=== PATIENT | female | born 1965 | race Caucasian/White ===

== ENCOUNTER 2018-09-05 05:20 | Inpatient (IN) | payer BC ==
[2018-09-05 06:26] LABS: Basophils % (A) 0 %; Eosinophils # (A) 0.1 k/uL (0-0.7); Eosinophils % (A) 1 %; HCT 40.1 % (34.0-46.0); HGB 12.8 gm/dL (11.4-16.0); Lymphocytes # (A) 0.8 k/uL (1.0-4.8); Lymphocytes % (A) 6 %; MCH 26.1 pg (25.0-35.0); MCHC 31.9 g/dL (31.0-37.0); MCV 81.7 fL (80.0-100.0); Mean Platelet Volume 6.8; Monocytes # (A) 0.6 k/uL (0-1.0); Monocytes % (A) 5 %; Neutrophils # (A) 10.7 k/uL (1.3-7.7); Neutrophils % (A) 87 %; Platelet Count 219 k/uL (150-450); RBC 4.92 m/uL (3.80-5.40); RDW 15.4 % (11.5-15.5); WBC 12.3 k/uL (3.8-10.6)
[2018-09-05 06:36] LABS: ALT 30 U/L (9-52); AST 23 U/L (14-36); Albumin 3.7 g/dL (3.5-5.0); Alkaline Phosphatase 96 U/L (38-126); Amylase 35 U/L (30-110); Anion Gap 10 mmol/L; Blood Urea Nitrogen 11 mg/dL (7-17); Calcium 7.3 mg/dL (8.4-10.2); Carbon Dioxide 26 mmol/L (22-30); Chloride 99 mmol/L (98-107); Glucose 145 mg/dL (74-99); Lipase 18 U/L (23-300); Potassium 3.8 mmol/L (3.5-5.1); Sodium 135 mmol/L (137-145); Total Bilirubin 1.3 mg/dL (0.2-1.3); Total Protein 6.8 g/dL (6.3-8.2)
[2018-09-05 06:55] LABS: Appearance,Urine Clear (Clear); Bacteria,Urine Rare /hpf; Bilirubin,Urine Negative (Negative); Blood,Urine Small (Negative); Color,Urine Yellow; Glucose,Urine (UA) Negative (Negative); Ketones,Urine 1+ (Negative); Leukocyte Esterase,Urine Negative (Negative); Mucus,Urine Few /hpf; Nitrite,Urine Negative (Negative); PH, Urine 5.5 (5.0-8.0); Protein,Urine Trace (Negative); RBC,Urine 2 /hpf (0-5); Specific Gravity,Urine 1.008 (1.001-1.035); Squamous Epithelial Cell,Urine 2 /hpf (0-4); Urobilinogen,Urine <2.0 mg/dL (<2.0); WBC,Urine 1 /hpf (0-5)
[2018-09-05] MEDS ORDERED: SODIUM CHLORIDE 0.9% 1,000 ML IV STA (07:09)
[2018-09-05] MEDS ORDERED: ONDANSETRON 4 MG/2 ML VIAL IVP STA (07:09)
--- NOTE | 2018-09-05 07:37 | ED ---
General Adult HPI - General Chief complaint: Nausea/Vomiting/Diarrhea Stated complaint: Diarrhea,Fever Time Seen by Provider: 09/05/18 07:08 Source: patient, RN notes reviewed Mode of arrival: ambulatory Limitations: no limitations - History of Present Illness Initial comments: Patient 52-year-old female presented to the emergency room today with a chief complaint of increased abdominal pain and fever. Patient does admit that she's had some pain in the lower abdomen. She states this is similar to pain that she had a few weeks ago. She states her doctor put her on Cipro and Flagyl. She states she had a CAT scan done in [place]. She states she recently came here to [place] for a . She states last night pain increases nor that she was running a fever. She doesn't that she's had diarrhea and symptoms of nausea. Patient denies any other complaints or symptoms. Patient denies any recent fever, chills, shortness of breath, chest pain, back pain, numbness or tingling, dysuria or hematuria, constipation, headaches or visual changes, or any other complaints. - Related Data Home Medications Medication Instructions Recorded Confirmed Levothyroxine Sodium [Synthroid] 100 mcg PO DAILY 09/05/18 09/05/18 Allergies Allergy/AdvReac Type Severity Reaction Status Date / Time cephalexin Allergy Rash/Hives Verified 09/05/18 07:50 Iodinated Contrast- Oral and Allergy Dyspnea Verified 09/05/18 07:50 IV Dye Review of Systems ROS Statement: Those systems with pertinent positive or pertinent negative responses have been documented in the HPI. ROS Other: All systems not noted in ROS Statement are negative. Past Medical History Past Medical History: Thyroid Disorder Additional Past Medical History / Comment(s): neck and back pain. thyroid ca. History of Any Multi-Drug Resistant Organisms: None Reported Past Surgical History: Section Additional Past Surgical History / Comment(s): thyroidectomy. ovarian cysts. Past Psychological History: Anxiety Smoking Status: Former smoker Past Alcohol Use History: None Reported Past Drug Use History: None Reported General Exam - General Exam Comments Initial Comments: General: The patient is awake and alert, in no distress, and does not appear acutely ill. Eye: There is normal conjunctiva bilaterally. No signs of icterus. Ears, nose, mouth and throat: There are moist mucous membranes and no oral lesions. Neck: The neck is supple, there is no tenderness or JVD. Cardiovascular: There is a regular rate and rhythm. No murmur, rub or gallop is appreciated. Respiratory: Lungs are clear to auscultation, respirations are non-labored, breath sounds are equal. No wheezes, stridor, rales, or rhonchi. Gastrointestinal: Having soft on palpation. Patient does have tenderness left lower quadrant. No rebound, guarding or CVA tenderness. Musculoskeletal: Normal ROM, no tenderness. Pulses equal bilaterally 2+. Neurological: A&O x 3. CN II-XII intact, There are no obvious motor or sensory deficits. Coordination appears grossly intact. Speech is normal. Skin: Skin is warm and dry and no rashes or lesions are noted. Psychiatric: Cooperative, appropriate mood & affect, normal judgment. Limitations: no limitations Course Vital Signs 09/05/18 05:26 Temperature 99.4 F Pulse Rate 109 H Respiratory 16 Rate Blood Pressure 109/75 O2 Sat by Pulse 99 Oximetry Medical Decision Making - Medical Decision Making Patient reexamined at this time shows no signs of distress is resting comfortable. Does admit that she's had increased diarrhea and having difficult time controlling at home. Patient labs been reviewed does show 12,000 white count. Patient's seated test was positive. CAT scan and pelvis reviewed and does show evidence for colitis. Results were discussed with the patient. Patient will be admitted around vancomycin here in the emergency room. - Lab Data Result diagrams: 09/05/18 05:57 09/05/18 05:57 Lab Results 09/05/18 09/05/18 09/05/18 Range/Units 05:57 05:57 06:40 WBC 12.3 H (3.8-10.6) k/uL RBC 4.92 (3.80-5.40) m/uL Hgb 12.8 (11.4-16.0) gm/dL Hct 40.1 (34.0-46.0) % MCV 81.7 (80.0-100.0) fL MCH 26.1 (25.0-35.0) pg MCHC 31.9 (31.0-37.0) g/dL RDW 15.4 (11.5-15.5) % Plt Count 219 (150-450) k/uL Neutrophils % 87 % Lymphocytes % 6 % Monocytes % 5 % Eosinophils % 1 % Basophils % 0 % Neutrophils # 10.7 H (1.3-7.7) k/uL Lymphocytes # 0.8 L (1.0-4.8) k/uL Monocytes # 0.6 (0-1.0) k/uL Eosinophils # 0.1 (0-0.7) k/uL Basophils # 0.0 (0-0.2) k/uL Sodium 135 L (137-145) mmol/L Potassium 3.8 (3.5-5.1) mmol/L Chloride 99 (98-107) mmol/L Carbon Dioxide 26 (22-30) mmol/L Anion Gap 10 mmol/L BUN 11 (7-17) mg/dL Creatinine 0.68 (0.52-1.04) mg/dL Est GFR (CKD-EPI)AfAm >90 (>60 ml/min/1.73 sqM) Est GFR (CKD-EPI)NonAf >90 (>60 ml/min/1.73 sqM) Glucose 145 H (74-99) mg/dL Calcium 7.3 L (8.4-10.2) mg/dL Total Bilirubin 1.3 (0.2-1.3) mg/dL AST 23 (14-36) U/L ALT 30 (9-52) U/L Alkaline Phosphatase 96 (38-126) U/L Total Protein 6.8 (6.3-8.2) g/dL Albumin 3.7 (3.5-5.0) g/dL Amylase 35 (30-110) U/L Lipase 18 L (23-300) U/L Urine Color Yellow Urine Appearance Clear (Clear) Urine pH 5.5 (5.0-8.0) Ur Specific [place] 1.008 (1.001-1.035) Urine Protein Trace H (Negative) Urine Glucose (UA) Negative (Negative) Urine Ketones 1+ H (Negative) Urine Blood Small H (Negative) Urine Nitrite Negative (Negative) Urine Bilirubin Negative (Negative) Urine Urobilinogen <2.0 (<2.0) mg/dL Ur Leukocyte Esterase Negative (Negative) Urine RBC 2 (0-5) /hpf Urine WBC 1 (0-5) /hpf Ur Squamous Epith Cells 2 (0-4) /hpf Urine Bacteria Rare H (None) /hpf Urine Mucus Few H (None) /hpf C. difficile (EIA) Intrp (Negative) 09/05/18 Range/Units 07:50 WBC (3.8-10.6) k/uL RBC (3.80-5.40) m/uL Hgb (11.4-16.0) gm/dL Hct (34.0-46.0) % MCV (80.0-100.0) fL MCH (25.0-35.0) pg MCHC (31.0-37.0) g/dL RDW (11.5-15.5) % Plt Count (150-450) k/uL Neutrophils % % Lymphocytes % % Monocytes % % Eosinophils % % Basophils % % Neutrophils # (1.3-7.7) k/uL Lymphocytes # (1.0-4.8) k/uL Monocytes # (0-1.0) k/uL Eosinophils # (0-0.7) k/uL Basophils # (0-0.2) k/uL Sodium (137-145) mmol/L Potassium (3.5-5.1) mmol/L Chloride (98-107) mmol/L Carbon Dioxide (22-30) mmol/L Anion Gap mmol/L BUN (7-17) mg/dL Creatinine (0.52-1.04) mg/dL Est GFR (CKD-EPI)AfAm (>60 ml/min/1.73 sqM) Est GFR (CKD-EPI)NonAf (>60 ml/min/1.73 sqM) Glucose (74-99) mg/dL Calcium (8.4-10.2) mg/dL Total Bilirubin (0.2-1.3) mg/dL AST (14-36) U/L ALT (9-52) U/L Alkaline Phosphatase (38-126) U/L Total Protein (6.3-8.2) g/dL Albumin (3.5-5.0) g/dL Amylase (30-110) U/L Lipase (23-300) U/L Urine Color Urine Appearance (Clear) Urine pH (5.0-8.0) Ur Specific [place] (1.001-1.035) Urine Protein (Negative) Urine Glucose (UA) (Negative) Urine Ketones (Negative) Urine Blood (Negative) Urine Nitrite (Negative) Urine Bilirubin (Negative) Urine Urobilinogen (<2.0) mg/dL Ur Leukocyte Esterase (Negative) Urine RBC (0-5) /hpf Urine WBC (0-5) /hpf Ur Squamous Epith Cells (0-4) /hpf Urine Bacteria (None) /hpf Urine Mucus (None) /hpf C. difficile (EIA) Intrp Positive A (Negative) Disposition Clinical Impression: C. difficile colitis Disposition: ADMITTED IP TO THIS HOSP Condition: Good Is patient prescribed a controlled substance at d/c from ED?: No Referrals: Nonstaff,Physician [Primary Care Provider] - 1-2 days
--- NOTE | 2018-09-05 08:28 | CT ---
EXAMINATION TYPE: CT abdomen pelvis wo con DATE OF EXAM: 09/05/2018 COMPARISON: None HISTORY: 52-year-old female Pain CT DLP: 422.8 mGycm. Automated exposure control for dose reduction was used. TECHNIQUE: Contiguous axial scanning of the abdomen and pelvis without IV contrast. Coronal and sagit kevin reconstructions performed. FINDINGS: Heart normal size without pericardial effusion. Lung bases clear without pleural effusion. Noncontrast appearance of the liver, gallbladder, adrenal glands, left kidney, and spleen with hilar splenule show no gross abnormality. The pancreas is mildly atrophic. This seems to be dilatation of the bile duct at 1.1 cm, refer to cor onal image 42. 3.7 cm cyst upper pole right kidney. Scattered prominent lymph nodes are present in the upper abdomen. These measure up to 7 mm along the right aortocaval region near the aortic bifurcation, axial image 40. Appendix not discretely visualized. No dilated small bowel, free fluid, or free air. Moderate to large stool extending from the cecum to the distal third transverse colon. From the dista l third transverse colon down to the rectum, there is circumferential wall thickening to moderate deg ree and some areas of mild pericolonic fat stranding particularly involving the mid sigmoid where the re is some loss of the normal haustral pattern, refer to axial image 66. Bulky retroflexed uterus. Phleboliths in the right side of the pelvis. No abnormal fluid collection i n the pelvis or pelvic lymphadenopathy seen. Neither ovary is clearly visualized. Bones: Mild degenerative spurring of the hips. Degenerative disc disease lower lumbar spine. IMPRESSION: 1. Long segment moderate colitis extending from the distal transverse colon to the rectum. Certain po rtions are affected to a greater degree such as the mid sigmoid where there is loss of the normal yoandy stral pattern. Correlate for infectious or inflammatory colitis including possibility of ulcerative c olitis. No abscess or free air. 2. Moderate to large stool in the more proximal colon extending to the inflamed segment. 3. Noncontrast exam with apparent dilatation of the bile duct up to 1.1 cm. This may be normal in thi s patient. Correlate with alkaline phosphatase and bilirubin levels to exclude the possibility of ayaz iary obstruction. 4. Bulky appearance to the retroflexed uterus suggests premenopausal status. Clinically correlate. If the patient is postmenopausal, pelvic ultrasound can assess for any abnormal endometrial thickening.
[2018-09-05] MEDS ORDERED: VANCOMYCIN ORAL SOLUTION 250 MG/5 ML BOTTLE PO STA (10:28)
[2018-09-05] MEDS ORDERED: MORPHINE SULFATE 4 MG/ML SYRINGE IV PRN (10:32)
[2018-09-05] MEDS ORDERED: NALOXONE 0.4 MG/ML 1 ML VIAL IV PRN (10:32)
[2018-09-05] MEDS ORDERED: ONDANSETRON 4 MG/2 ML VIAL IVP PRN (10:32)
[2018-09-05] MEDS ORDERED: SODIUM CHLORIDE 0.9% 1,000 ML IV ONE (10:32)
[2018-09-05] MEDS: CHERRY FLAVOR 60 ML BOTTLE PO PRN ×2 (11:18→18:36)
[2018-09-05] MEDS ORDERED: VANCOMYCIN ORAL SOLUTION 250 MG/5 ML BOTTLE PO SCH ×2 (12:00→18:00)
[2018-09-05] MEDS ORDERED: TEMAZEPAM 15 MG CAP PO PRN (16:21)
[2018-09-05] MEDS ORDERED: HYDROcodone/APAP 5-325MG 1 EACH TAB PO PRN (16:21)
[2018-09-05] MEDS ORDERED: SODIUM CHLORIDE 0.9% 1,000 ML IV SCH (16:30)
[2018-09-05] MEDS: HYDROmorphone 0.5 MG/0.5 ML SYRINGE IVP PRN (17:00)
[2018-09-05] MEDS: CHERRY FLAVOR 60 ML BOTTLE PO SCH (18:36)
[2018-09-05 19:11] LABS: T4, Free (Free Thyroxine) 1.83 ng/dL (0.78-2.19)
[2018-09-05] MEDS: 0.9% NACL WITH KCL 40 MEQ/L 1,000 ML IV SCH (20:42)
[2018-09-05 20:52] VITALS: BMI 24.7
[2018-09-05] MEDS: HEPARIN SODIUM,PORCINE 5,000 UNIT/ML 1 ML VIAL SQ SCH (21:58)
[2018-09-05] MEDS ORDERED: MORPHINE SULFATE ER 30 MG TABLET PO SCH (22:00)
--- NOTE | 2018-09-05 22:13 | HP ---
HISTORY AND PHYSICAL CHIEF COMPLAINTS: Abdominal pain and diarrhea. HISTORY OF PRESENT ILLNESS: This 52-year-old woman with a past medical history of multiple medical problems, including DJD, history of hypothyroidism, history of neck and back pain, history of thyroid cancer, history of anxiety, tonsillectomy, is being followed by a primary care physician in [place] near [place]. The patient apparently is in town for her father's and the patient had sudden onset of abdominal pain and diarrhea, multiple episodes. Patient was unable to keep anything down. Patient came to [facility] and was admitted for further evaluation. Pain is mostly in the lower abdomen. The patient apparently had a similar episode a few weeks ago. Patient had taken a course of Cipro and Flagyl. C difficile was not checked at this time. Prior to that the patient had infection in the right axilla, was taking doxycycline for apparent skin infection. Currently the patient is also running some fever and has multiple episodes of diarrhea. Otherwise, there is no history of hematochezia. No history of melena. No history of headache, loss of consciousness, seizures at this time. The patient is being admitted for evaluation and treatment. C difficile was found to be positive. WBC 12.3. The patient also had a CT scan of the abdomen and pelvis which showed multiple findings of a long segment of moderate colitis extending from the distal transverse colon to the rectum; certain portions are affected to a greater degree, such a mid sigmoid, and there is loss of normal haustral pattern also. Moderate to large stool in the more proximal colon was also noted. Non-contrast exam was also done which showed apparent dilatation of the bile duct to 1.1 cm and bulky appearance of the retroflexed uterus also noted. The patient is admitted for further evaluation. There is no history of any fever, rigor or chills. No history of headache, loss of consciousness, seizures. PAST MEDICAL HISTORY: 1. History of recent diarrhea. 2. History of DJD. 3. History hypothyroidism. 4. Neck and back pain. 5. History of tonsillectomy. 6. History of anxiety. HOME MEDICATIONS: Levothyroxine 100 mcg p.o. daily. ALLERGIES: CEPHALEXIN, IODINATED CONTRAST DYES. FAMILY HISTORY: History of dementia. SOCIAL HISTORY: Previous history of smoking. No current smoking or alcohol intake. REVIEW OF SYSTEMS: ENT: No diminished hearing. No diminished vision. CARDIOVASCULAR SYSTEM: No angina, palpitations. RESPIRATORY SYSTEM: No cough, hemoptysis. GI: As mentioned earlier. : No dysuria or retention. NERVOUS SYSTEM: No numbness, weakness. ALLERGY/IMMUNOLOGY: No asthma, hayfever. MUSCULOSKELETAL: As mentioned earlier. HEMATOLOGY/ONCOLOGY: No history of anemia. ENDOCRINE: Hypothyroidism. CONSTITUTIONAL: As mentioned earlier. DERMATOLOGY: Negative. RHEUMATOLOGY: Negative. PSYCHIATRY: As mentioned earlier. PHYSICAL EXAMINATION: Patient alert and oriented x3. Pulse 88, blood pressure 118/72, respiration 18, temperature 98.7, pulse ox 98% on room air. HEENT: Conjunctivae normal. Oral mucosa moist. NECK: No jugular venous distention. No carotid bruit. No lymph node enlargement. CARDIOVASCULAR SYSTEM: S1, S2 muffled. RESPIRATORY SYSTEM: Breath sounds diminished at the bases. A few scattered rhonchi and crackles. ABDOMEN: Soft. Mild diffuse tenderness present. No guarding. No rigidity. No mass palpable. LEGS: No edema. No swelling. NERVOUS SYSTEM: Higher functions as mentioned earlier. Moves all 4 limbs. No focal motor or sensory deficit. LYMPHATICS: No lymph node palpable in neck, axillae or groin. SKIN: No ulcer, rash, bleeding. LABS: WBC 12.3, hemoglobin 12.8, sodium 135, potassium 3.8, calcium 7.3. Glucose 145. TSH is 0.104. Free T4 is normal. ASSESSMENT: 1. Acute diarrheal episode, possibly Clostridium difficile colitis, with severe pain and diarrhea. 2. Increased white count. 3. Hyponatremia. 4. Decreased TSH and normal free T4. 5. History of degenerative joint disease. 6. History of hypothyroidism. 7. History of neck and back pain. 8. History of thyroid cancer. 9. History of anxiety. 10.History of section. 11.History of tonsillectomy. 12.History of nicotine dependence. RECOMMENDATIONS AND DISCUSSION: In this 52-year-old woman who presented with multiple complex medical issues, we will monitor the patient closely, continue the current medications, continue with symptomatic treatment. I would recommend p.o. vancomycin. I would also recommend infectious disease evaluation. Otherwise, we will continue the rest of the medications. I will keep the patient n.p.o. except medication at this time and continue to monitor. Other than that, IV fluids, DVT prophylaxis, proton pump inhibitors. Guarded prognosis because of the multiple complex medical issues.. Further recommendations to follow. See orders for further details. Prognosis guarded. The patient has had continued diarrhea. Questran also may be added to the current regimen. MMODL / IJN: [id number] /
[2018-09-06] MEDS ORDERED: MORPHINE SULFATE ER 30 MG TABLET PO SCH
[2018-09-06] MEDS: VANCOMYCIN ORAL SOLUTION 250 MG/5 ML BOTTLE PO SCH ×5 (00:17→23:46)
[2018-09-06] MEDS: CHERRY FLAVOR 60 ML BOTTLE PO SCH ×5 (00:18→23:45)
[2018-09-06] MEDS: HYDROmorphone 0.5 MG/0.5 ML SYRINGE IVP PRN (01:44)
[2018-09-06] MEDS: LEVOTHYROXINE 100 MCG TAB PO SCH (05:34)
[2018-09-06] MEDS: 0.9% NACL WITH KCL 40 MEQ/L 1,000 ML IV SCH ×2 (06:14→15:54)
[2018-09-06 10:01] LABS: ALT 24 U/L (9-52); AST 19 U/L (14-36); Albumin 2.9 g/dL (3.5-5.0); Alkaline Phosphatase 76 U/L (38-126); Anion Gap 6 mmol/L; Blood Urea Nitrogen 6 mg/dL (7-17); Carbon Dioxide 28 mmol/L (22-30); Chloride 105 mmol/L (98-107); Glucose 101 mg/dL (74-99); Potassium 4.1 mmol/L (3.5-5.1); Sodium 139 mmol/L (137-145); Total Bilirubin 0.4 mg/dL (0.2-1.3); Total Protein 5.5 g/dL (6.3-8.2)
[2018-09-06] MEDS: MORPHINE SULFATE ER 30 MG TABLET PO PRN (10:02)
[2018-09-06] MEDS: DIAZEPAM 5 MG TAB PO PRN ×2 (10:04→22:29)
[2018-09-06] MEDS: PANTOPRAZOLE 40 MG/10 ML VIAL IVP SCH (10:07)
[2018-09-06] MEDS: HEPARIN SODIUM,PORCINE 5,000 UNIT/ML 1 ML VIAL SQ SCH ×2 (10:08→21:38)
[2018-09-06 10:20] LABS: Basophils % (A) 0 %; Eosinophils % (A) 0 %; HCT 35.3 % (34.0-46.0); HGB 11.4 gm/dL (11.4-16.0); Lymphocytes # (A) 1.1 k/uL (1.0-4.8); Lymphocytes % (A) 13 %; MCH 26.7 pg (25.0-35.0); MCHC 32.2 g/dL (31.0-37.0); MCV 83.1 fL (80.0-100.0); Mean Platelet Volume 7.1; Monocytes # (A) 0.4 k/uL (0-1.0); Monocytes % (A) 5 %; Neutrophils # (A) 7.3 k/uL (1.3-7.7); Neutrophils % (A) 81 %; Platelet Count 191 k/uL (150-450); RBC 4.25 m/uL (3.80-5.40); RDW 15.4 % (11.5-15.5)
[2018-09-06 10:32] LABS: Calcium 6.2 mg/dL (8.4-10.2)
[2018-09-06] MEDS ORDERED: CALCIUM GLUCONATE 1,000 MG in SODIUM CHLORIDE 0.9% 100 ML IVPB ONE (17:00)
[2018-09-06] MEDS: CALCIUM CARBONATE 500 MG CHEWABLE PO SCH (17:05)
--- NOTE | 2018-09-06 19:03 | PN ---
PROGRESS NOTE DATE OF SERVICE: 09/06/2018 This 82-year-old woman was admitted with acute C difficile colitis, also had multiple medications. The patient also had chronic pain. The patient also on a heavy dose of morphine from the primary. No chest pain. No palpitations. No fever. REVIEW OF SYSTEMS: CARDIOVASCULAR: No angina or palpitations. Respiration: As mentioned earlier. GI as mentioned earlier. CURRENT MEDICATIONS: Reviewed and include: 1. Tylenol 650 q.6h p.r.n. 2. [place] 5 mg. 3. Xanax 0.2. 4. Calcium gluconate 1000 mg b.i.d. 5. . 6. Valium 10 mg t.i.d. p.r.n. 7. Heparin. 8. Dilaudid. 9. Synthroid. 10.MS Contin 30 mg q.8h. 11.Zofran. 12.Oxy IR 30 mg q.6h p.r.n. 13.Protonix. 14.Restoril. 15.Vancomycin. EXAM: Alert and oriented times three. Pulse 71, blood pressure 103/60. Respirations 16, temperature 100 degrees, pulse ox 98% on room air. HEENT: Conjunctivae normal. NECK: No jugular venous distention. CARDIOVASCULAR: S1, S2. RESPIRATORY: Breath sounds diminished in the bases. A few scattered rhonchi and crackles. ABDOMEN is soft. Mild diffuse discomfort. No guarding. No rigidity. No mass palpable. LEGS: No edema. No swelling. CENTRAL NERVOUS SYSTEM: No focal deficits. LABS: Reviewed. Other labs are noted. ASSESSMENT: 1. Acute diarrheal episode, possibly C difficile colitis, severe pain and diarrhea. 2. Chronic pain syndrome. 3. Increased WBC. 4. Severe hypocalcemia. 5. Hyponatremia. 6. Decreased TSH and normal free T4. 7. History of degenerative joint disease. 8. Hypothyroidism. 9. History of neck and back pain. 10.History of thyroid cancer. 11.History of anxiety. 12.History of tonsillectomy. 13.History of nicotine dependence. RECOMMENDATIONS AND DISCUSSION: Continue current medications, management and symptomatic treatment. Continue with IV vancomycin. The cultures are negative so far. I would also recommend infectious disease evaluation. Continue the p.o. vancomycin. Otherwise, continue rest of medications. The prognosis is guarded because of multiple complex medical issues and further recommendations to follow. Continue with p.r.n. pain medications. Recommend close follow up with the primary physician after discharge. MMODL / IJN: [id number] /
[2018-09-06] MEDS: ACETAMINOPHEN TAB 325 MG TAB PO PRN (19:26)
[2018-09-06] MEDS: CALCIUM GLUCONATE 1,000 MG in SODIUM CHLORIDE 0.9% 100 ML IVPB SCH (23:47)
[2018-09-07] MEDS: HYDROmorphone 0.5 MG/0.5 ML SYRINGE IVP PRN (01:59)
[2018-09-07] MEDS: 0.9% NACL WITH KCL 40 MEQ/L 1,000 ML IV SCH ×2 (03:52→13:05)
[2018-09-07] MEDS: VANCOMYCIN ORAL SOLUTION 250 MG/5 ML BOTTLE PO SCH ×3 (05:48→17:46)
[2018-09-07] MEDS: LEVOTHYROXINE 100 MCG TAB PO SCH (05:48)
[2018-09-07] MEDS: CHERRY FLAVOR 60 ML BOTTLE PO SCH ×3 (05:48→17:46)
[2018-09-07 07:35] LABS: Basophils % (A) 0 %; Eosinophils # (A) 0.2 k/uL (0-0.7); Eosinophils % (A) 2 %; HCT 34.1 % (34.0-46.0); HGB 10.8 gm/dL (11.4-16.0); Lymphocytes % (A) 12 %; MCH 26.5 pg (25.0-35.0); MCHC 31.6 g/dL (31.0-37.0); MCV 83.9 fL (80.0-100.0); Mean Platelet Volume 6.8; Monocytes # (A) 0.4 k/uL (0-1.0); Monocytes % (A) 5 %; Neutrophils # (A) 6.7 k/uL (1.3-7.7); Neutrophils % (A) 80 %; Platelet Count 182 k/uL (150-450); RBC 4.07 m/uL (3.80-5.40); RDW 15.1 % (11.5-15.5); WBC 8.4 k/uL (3.8-10.6)
[2018-09-07 07:57] LABS: Anion Gap 11 mmol/L; Blood Urea Nitrogen 5 mg/dL (7-17); Calcium 6.9 mg/dL (8.4-10.2); Carbon Dioxide 22 mmol/L (22-30); Chloride 105 mmol/L (98-107); Glucose 102 mg/dL (74-99); Sodium 138 mmol/L (137-145)
[2018-09-07] MEDS: CALCIUM CARBONATE 500 MG CHEWABLE PO SCH ×2 (09:10→22:16)
[2018-09-07] MEDS: PANTOPRAZOLE 40 MG/10 ML VIAL IVP SCH (09:14)
[2018-09-07] MEDS: HEPARIN SODIUM,PORCINE 5,000 UNIT/ML 1 ML VIAL SQ SCH ×2 (09:14→22:17)
[2018-09-07] MEDS: CALCIUM GLUCONATE 1,000 MG in SODIUM CHLORIDE 0.9% 100 ML IVPB SCH ×2 (09:14→22:17)
--- NOTE | 2018-09-07 10:44 | P.PN ---
Subjective 52-year-old female admitted for C. diff colitis and diarrhea. Her diarrhea improved patient still had fever because of which the other monitor her one more night if she is fever free and if her diarrhea improves, patient will be discharged tomorrow on oral vancomycin. Patient on multiple opiate medications for pain. Constitutional: Denied any fatigue denied any fever. Cardio vascular: denied any chest pain, palpitations Gastrointestinal denied any nausea vomiting Pulmonary: Denied any shortness of breath cough Neurologic denied any new focal deficits All inpatient medications were reviewed and appropriate changes in these medications as dictated in the interval history and assessment and plan. Objective - Vital Signs Vital signs: Vital Signs Temp 100.1 F H 09/07/18 07:31 Pulse 100 09/07/18 07:31 Resp 18 09/07/18 09:15 BP 92/54 09/07/18 07:31 Pulse Ox 97 09/07/18 07:31 Intake & Output 09/06/18 09/07/18 09/07/18 18:59 06:59 18:59 Other: # Voids 2 2 # Bowel Movements 2 - Exam PHYSICAL EXAMINATION: GENERAL: The patient is alert and oriented x3, not in any acute distress. Well developed, well nourished. HEENT: Pupils are round and equally reacting to light. EOMI. No scleral icterus. No conjunctival pallor. Normocephalic, atraumatic. No pharyngeal erythema. No thyromegaly. CARDIOVASCULAR: S1 and S2 present. No murmurs, rubs, or gallops. PULMONARY: Chest is clear to auscultation, no wheezing or crackles. ABDOMEN: Soft, nontender, nondistended, normoactive bowel sounds. No palpable organomegaly. MUSCULOSKELETAL: No joint swelling or deformity. EXTREMITIES: No cyanosis, clubbing, or pedal edema. NEUROLOGICAL: Gross neurological examination did not reveal any focal deficits. SKIN: No rashes. - Labs CBC & Chem 7: 09/07/18 07:06 09/07/18 07:06 Labs: Abnormal Lab Results - Last 24 Hours (Table) 09/07/18 09/07/18 Range/Units 07:06 07:06 Hgb 10.8 L (11.4-16.0) gm/dL BUN 5 L (7-17) mg/dL Glucose 102 H (74-99) mg/dL Calcium 6.9 L (8.4-10.2) mg/dL Assessment and Plan Plan: C. diff colitis: He is oral vancomycin if she has fever again low blood cultures and the urine cultures along with chest x-ray -Hypothyroidism with history of thyroid cancer in the past -Anxiety disorder -Chronic pain.
[2018-09-07] MEDS: ALPRAZolam 0.25 MG TAB PO PRN ×2 (12:59→22:33)
[2018-09-07] MEDS: MORPHINE SULFATE ER 30 MG TABLET PO PRN (17:46)
--- NOTE | 2018-09-07 22:40 | CONS ---
CONSULTATION DATE OF SERVICE: 09/07/2018. REASON FOR CONSULTATION: C. diff colitis. HISTORY OF PRESENT ILLNESS: The patient is a 52-year-old, female presenting to the ER at [facility] on 09/02/2018 with chief complaints of nausea, vomiting, abdominal pain, and diarrhea. The symptoms has been going on for more than a week now. Apparently the patient was evaluated at the hospital in [place] where the patient apparently did have a CT abdominal pelvis and was advised to remain on Cipro and Flagyl. There is also history of . The patient came to [place] to attend her father's . However, the patient did have significant diarrhea. She has more than 10 loose stools per day with no blood or mucus in it. She does have crampy lower abdominal pain mostly left-sided about 5 to 6/10, with associated nausea and at times vomiting. With these symptoms, the patient presented to [facility] ER. On arrival to the ER, the patient did have a CT of the abdomen and pelvis which did show circumferential wall thickening to a moderate degree of the colon. Patient on admission was afebrile. However, the patient has been running low-grade fever as of last evening and this morning of 100.3-100.1. The patient white count elevated to 12.0 on admission as of today 8.4. Stool for C difficile was sent which came back positive. The patient started on vancomycin 250 p.o. q.6 hours. Infectious disease was consulted for further recommendations regarding antibiotic therapy. REVIEW OF SYSTEMS: Positive points have been mentioned in HPI. The rest of system have been negative. PAST MEDICAL HISTORY: History of thyroid cancer, chronic neck and back pain, ovarian cyst, and anxiety. PAST SURGICAL HISTORY: , thyroidectomy and ovarian cyst removal. SOCIAL HISTORY: Remote history of smoking. No drinking or drug use. FAMILY HISTORY: No pertinent findings noticed. ALLERGIES: ALLERGIES TO CEPHALEXIN, IODINATED CONTRAST DYE. MEDICATIONS: Medications include the patient is on vancomycin 250 p.o. q.6 hours. She is on Restoril, Protonix, Zofran, Narcan, MS Contin, Synthroid, Calcium carbonate, Xanax, [place] and Tylenol. EXAMINATION: Blood pressure is 99/63, pulse of 84, temperature 97.9, T-max 100.1. She is 97% on room air. General description is a middle-aged female lying in bed in no distress. No tachypnea or accessory muscles of respiration use. HEENT: Shows slight pallor. No scleral icterus. Oral mucosal membranes are dry. No pharyngeal erythema or thrush. NECK: Trachea central. No thyromegaly. Lungs unlabored breathing. Clear to auscultation anteriorly. No wheeze or crackles. Heart S1, S2. Regular rate and rhythm. ABDOMEN: Soft, mildly tender in lower quadrant area. No guarding or rigidity. No organomegaly. EXTREMITIES: No edema of the feet. Skin examination: No rash or mass palpable. Neurological: Patient is awake, alert, oriented times three. Mood and affect normal. LABS: Hemoglobin is 10.1, white count of 8.4, BUN of 5, creatinine 0.56. UA has been negative. Stool for C diff positive. DIAGNOSTIC IMPRESSION AND PLAN: Patient admitted to the hospital with intractable diarrhea, nausea along with abdominal pain and did have a low-grade fever, likely representing a symptomatic C dif colitis. This is her 1st episode though and the patient did not have a previous history of C difficile colitis. PLAN: 1. Vancomycin 250 p.o. q.6 hours. 2. Will add Questran 4 g p.o. twice a day. 3. Patient advised to increase the intake. 4. We will follow up on clinical condition and further adjust medication if needed. Thank you for this consultation. We will follow the patient along with you. MMODL / IJN: [id number] /
[2018-09-08] MEDS: VANCOMYCIN ORAL SOLUTION 250 MG/5 ML BOTTLE PO SCH ×4 (00:53→17:44)
[2018-09-08] MEDS: CHERRY FLAVOR 60 ML BOTTLE PO SCH ×4 (00:53→17:44)
[2018-09-08] MEDS: 0.9% NACL WITH KCL 40 MEQ/L 1,000 ML IV SCH ×2 (00:53→11:51)
[2018-09-08] MEDS: LEVOTHYROXINE 100 MCG TAB PO SCH (05:47)
[2018-09-08 07:13] LABS: Basophils % (A) 0 %; Eosinophils # (A) 0.3 k/uL (0-0.7); Eosinophils % (A) 2 %; HCT 36.3 % (34.0-46.0); HGB 11.6 gm/dL (11.4-16.0); Lymphocytes # (A) 1.3 k/uL (1.0-4.8); Lymphocytes % (A) 12 %; MCH 26.4 pg (25.0-35.0); MCV 82.4 fL (80.0-100.0); Mean Platelet Volume 7.2; Monocytes # (A) 0.5 k/uL (0-1.0); Monocytes % (A) 5 %; Neutrophils # (A) 8.5 k/uL (1.3-7.7); Neutrophils % (A) 79 %; Platelet Count 209 k/uL (150-450); RDW 15.1 % (11.5-15.5); WBC 10.7 k/uL (3.8-10.6)
[2018-09-08] MEDS: ACETAMINOPHEN TAB 325 MG TAB PO PRN ×2 (07:13→15:02)
[2018-09-08 07:26] LABS: Anion Gap 8 mmol/L; Blood Urea Nitrogen 3 mg/dL (7-17); Calcium 7.3 mg/dL (8.4-10.2); Carbon Dioxide 28 mmol/L (22-30); Chloride 98 mmol/L (98-107); Glucose 117 mg/dL (74-99); Potassium 4.4 mmol/L (3.5-5.1); Sodium 134 mmol/L (137-145)
[2018-09-08] MEDS: ALPRAZolam 0.25 MG TAB PO PRN (08:12)
[2018-09-08] MEDS: CHOLESTYRAMINE (WITH SUGAR) 4 GM PACKET PO SCH ×2 (08:14→20:16)
[2018-09-08] MEDS: CALCIUM CARBONATE 500 MG CHEWABLE PO SCH ×2 (08:14→20:15)
[2018-09-08] MEDS: HEPARIN SODIUM,PORCINE 5,000 UNIT/ML 1 ML VIAL SQ SCH ×2 (08:16→20:15)
[2018-09-08] MEDS: CALCIUM GLUCONATE 1,000 MG in SODIUM CHLORIDE 0.9% 100 ML IVPB SCH ×2 (10:06→21:00)
--- NOTE | 2018-09-08 10:26 | P.PN ---
Subjective 52-year-old female admitted for C. diff colitis and diarrhea. Her diarrhea improved patient still had fever because of which the other monitor her one more night if she is fever free and if her diarrhea improves, patient will be discharged tomorrow on oral vancomycin. Patient on multiple opiate medications for pain. 09/08/2018 Patient diarrhea significant improved but still had fevers today because of which I'll do the septic workup with chest x-ray two-view blood culture urine culture, UA patient will not be started on any other antibiotics. Infectious disease is following the patient as well. Patient is complaining of some abdominal discomfort because of questron Constitutional: Denied any fatigue denied any fever. Cardio vascular: denied any chest pain, palpitations Gastrointestinal denied any nausea vomiting Pulmonary: Denied any shortness of breath cough Neurologic denied any new focal deficits All inpatient medications were reviewed and appropriate changes in these medications as dictated in the interval history and assessment and plan. Objective - Vital Signs Vital signs: Vital Signs Temp 101.1 F H 09/08/18 07:00 Pulse 106 H 09/08/18 07:00 Resp 15 09/08/18 09:08 BP 98/65 09/08/18 07:00 Pulse Ox 98 09/08/18 07:00 Intake & Output 09/07/18 09/08/18 09/08/18 18:59 06:59 18:59 Intake Total 1200 100 Balance 1200 100 Weight 71.668 kg Intake: Intake, IV Titration 800 Amount 0.9% NaCl with KCl 40 Meq 700 /l 1,000 ml @ 100 mls/hr IV .Q10H GABRIELA Rx#: [id number] Calcium Gluconate 1,000 100 mg In Sodium Chloride 0.9 % 100 ml @ 100 mls/hr IVPB BID GABRIELA Rx#: [id number] Oral 400 100 Other: # Voids 3 # Bowel Movements 2 - Exam PHYSICAL EXAMINATION: GENERAL: The patient is alert and oriented x3, not in any acute distress. Well developed, well nourished. HEENT: Pupils are round and equally reacting to light. EOMI. No scleral icterus. No conjunctival pallor. Normocephalic, atraumatic. No pharyngeal erythema. No thyromegaly. CARDIOVASCULAR: S1 and S2 present. No murmurs, rubs, or gallops. PULMONARY: Chest is clear to auscultation, no wheezing or crackles. ABDOMEN: Soft, nontender, nondistended, normoactive bowel sounds. No palpable organomegaly. MUSCULOSKELETAL: No joint swelling or deformity. EXTREMITIES: No cyanosis, clubbing, or pedal edema. NEUROLOGICAL: Gross neurological examination did not reveal any focal deficits. SKIN: No rashes. - Labs CBC & Chem 7: 09/08/18 06:35 09/08/18 06:35 Labs: Abnormal Lab Results - Last 24 Hours (Table) 09/08/18 09/08/18 Range/Units 06:35 06:35 WBC 10.7 H (3.8-10.6) k/uL Neutrophils # 8.5 H (1.3-7.7) k/uL Sodium 134 L (137-145) mmol/L BUN 3 L (7-17) mg/dL Glucose 117 H (74-99) mg/dL Calcium 7.3 L (8.4-10.2) mg/dL Assessment and Plan Plan: C. diff colitis: He is oral vancomycin diarrhea improved -Continued fevers probably still from C. diff colitis but will do the septic workup as mentioned above -Hypothyroidism with history of thyroid cancer in the past -Anxiety disorder -Chronic pain.
[2018-09-08] MEDS: MORPHINE SULFATE ER 30 MG TABLET PO PRN (11:23)
[2018-09-08] MEDS: SODIUM CHLORIDE 0.9% 1,000 ML IV SCH ×2 (11:53→21:04)
[2018-09-08 12:38] LABS: Appearance,Urine Clear (Clear); Bilirubin,Urine Negative (Negative); Blood,Urine Negative (Negative); Color,Urine Light Yellow; Glucose,Urine (UA) Negative (Negative); Ketones,Urine Negative (Negative); Leukocyte Esterase,Urine Negative (Negative); Nitrite,Urine Negative (Negative); PH, Urine 6.5 (5.0-8.0); Protein,Urine Negative (Negative); Specific Gravity,Urine 1.003 (1.001-1.035); Urobilinogen,Urine <2.0 mg/dL (<2.0)
--- NOTE | 2018-09-08 14:02 | XR ---
EXAMINATION TYPE: XR chest 2V DATE OF EXAM: 09/08/2018 COMPARISON: NONE HISTORY: Vomiting and chest pain TECHNIQUE: Frontal and lateral views of the chest are obtained. FINDINGS: There is no focal air space opacity, pleural effusion, or pneumothorax seen. The cardiac silhouette size is within normal limits. The osseous structures are intact. IMPRESSION: No acute cardiopulmonary process.
--- NOTE | 2018-09-08 15:20 | PN ---
PROGRESS NOTE DATE OF SERVICE: 09/08/2018 REASON FOR FOLLOWUP: 1. C difficile colitis. 2. New fever. INTERVAL HISTORY: The patient did spike a fever of around 101 degrees Fahrenheit at midnight and this morning. The patient denies having any chest pain or shortness of breath or cough. She is feeling slightly nauseated but no vomiting. The patient's diarrhea slightly decreased, with about 3 episodes today with slightly formed stool. No blood or mucus in it. PHYSICAL EXAMINATION: Blood pressure 98/65 with a pulse of 106, temperature 101.1 degrees Fahrenheit. She is 98% on room air. General description is a middle-aged female up in the bed in no distress. RESPIRATORY SYSTEM: Unlabored breathing. Clear to auscultation anteriorly. HEART: S1, S2. Regular rate and rhythm. ABDOMEN: Soft. No tenderness. LABS: Hemoglobin is 11.6, white count 10.7 with a BUN of 3, creatinine 0.52. UA has been negative. DIAGNOSTIC IMPRESSION AND PLAN: Patient admitted to hospital with Clostridium difficile colitis in a patient who has shown some clinical improvement, now with a new fever. UA has been negative. Chest x- ray was ordered which is currently pending. However, lungs were clear to auscultation. Will check an influenza swab. Keep the patient on oral vancomycin and watch her fever closely. If she has persistent fever, the patient will benefit from repeat CT of abdomen and pelvis with oral contrast to make sure the patient has not developed any complication associated with C difficile colitis, though clinically the patient seems to be stable or improved compared to yesterday. MMODL / IJN: [id number] /
[2018-09-09] MEDS: VANCOMYCIN ORAL SOLUTION 250 MG/5 ML BOTTLE PO SCH ×3 (00:48→12:30)
[2018-09-09] MEDS: CHERRY FLAVOR 60 ML BOTTLE PO SCH ×3 (00:48→12:30)
[2018-09-09] MEDS: LEVOTHYROXINE 100 MCG TAB PO SCH (06:03)
[2018-09-09 07:27] LABS: Basophils % (A) 0 %; Eosinophils # (A) 0.5 k/uL (0-0.7); Eosinophils % (A) 7 %; HCT 34.9 % (34.0-46.0); HGB 11.1 gm/dL (11.4-16.0); Hypochromasia Slight; Lymphocytes # (A) 1.5 k/uL (1.0-4.8); Lymphocytes % (A) 22 %; MCH 26.7 pg (25.0-35.0); MCHC 31.7 g/dL (31.0-37.0); MCV 84.3 fL (80.0-100.0); Monocytes # (A) 0.3 k/uL (0-1.0); Monocytes % (A) 4 %; Neutrophils # (A) 4.3 k/uL (1.3-7.7); Neutrophils % (A) 65 %; Platelet Count 189 k/uL (150-450); RBC 4.14 m/uL (3.80-5.40); RDW 15.1 % (11.5-15.5); WBC 6.7 k/uL (3.8-10.6)
[2018-09-09 07:35] LABS: Anion Gap 5 mmol/L; Blood Urea Nitrogen 2 mg/dL (7-17); Calcium 7.3 mg/dL (8.4-10.2); Carbon Dioxide 31 mmol/L (22-30); Chloride 103 mmol/L (98-107); Glucose 101 mg/dL (74-99); Potassium 4.3 mmol/L (3.5-5.1); Sodium 139 mmol/L (137-145)
[2018-09-09] MEDS: CALCIUM CARBONATE 500 MG CHEWABLE PO SCH (08:27)
[2018-09-09] MEDS: ALPRAZolam 0.25 MG TAB PO PRN (08:27)
[2018-09-09 09:07] VITALS: RESP 16
[2018-09-09] MEDS: CALCIUM GLUCONATE 1,000 MG in SODIUM CHLORIDE 0.9% 100 ML IVPB SCH (10:01)
[2018-09-09] MEDS: HEPARIN SODIUM,PORCINE 5,000 UNIT/ML 1 ML VIAL SQ SCH (10:03)
[2018-09-09] MEDS: CHOLESTYRAMINE (WITH SUGAR) 4 GM PACKET PO SCH (11:20)
--- NOTE | 2018-09-09 11:55 | P.DS ---
Providers Date of admission: 09/05/18 10:32 Attending physician: Pari Reyna Consults: 09/06/18 17:13 Consult Physician Routine Consulting Provider: Bala Camacho Consult Reason/Comments: c diff Do you want consulting provider notified?: Yes Primary care physician: Physician Nonstaff Hospital Course: 52-year-old female admitted for C. diff colitis and diarrhea. Her diarrhea improved patient still had fever because of which the other monitor her one more night if she is fever free and if her diarrhea improves, patient will be discharged tomorrow on oral vancomycin. Patient on multiple opiate medications for pain. 09/08/2018 Patient diarrhea significant improved but still had fevers today because of which I'll do the septic workup with chest x-ray two-view blood culture urine culture, UA patient will not be started on any other antibiotics. Infectious disease is following the patient as well. Patient is complaining of some abdominal discomfort because of questron 09/09/2018 Her fever resolved last fever was at 2 PM as today. All the septic workup is negative including chest x-ray UA blood culture and influenza testing. Patient will be discharged today and 10 more days of vancomycin oral for C. diff colitis. PHYSICAL EXAMINATION: GENERAL: The patient is alert and oriented x3, not in any acute distress. Well developed, well nourished. HEENT: Pupils are round and equally reacting to light. EOMI. No scleral icterus. No conjunctival pallor. Normocephalic, atraumatic. No pharyngeal erythema. No thyromegaly. CARDIOVASCULAR: S1 and S2 present. No murmurs, rubs, or gallops. PULMONARY: Chest is clear to auscultation, no wheezing or crackles. ABDOMEN: Soft, nontender, nondistended, normoactive bowel sounds. No palpable organomegaly. MUSCULOSKELETAL: No joint swelling or deformity. EXTREMITIES: No cyanosis, clubbing, or pedal edema. NEUROLOGICAL: Gross neurological examination did not reveal any focal deficits. SKIN: No rashes. Assessment and Plan Plan: C. diff colitis: on oral vancomycin diarrhea improved -Hypothyroidism with history of thyroid cancer in the past -Anxiety disorder -Chronic pain. Patient Condition at Discharge: Good Plan - Discharge Summary Discharge Rx Participant: Yes New Discharge Prescriptions: New Vancomycin Oral Solution 250 mg PO Q6HR #10 day Continue Levothyroxine Sodium [Synthroid] 100 mcg PO DAILY oxyCODONE HCL 30 mg PO Q6H PRN PRN Reason: Pain Morphine Sulfate [Morphine Sulfate ER] 30 mg PO TID Diazepam [Valium] 10 mg PO TID Gilbert/D3/Mag11/Zinc/Visual Associate/Oziel/Bor [Caltrate 600+D Plus Tablet] 1 tab BID Discharge Medication List Levothyroxine Sodium [Synthroid] 100 mcg PO DAILY 09/05/18 [History] Gilbert/D3/Mag11/Zinc/Visual Associate/Oziel/Bor [Caltrate 600+D Plus Tablet] 1 tab BID 09/06/18 [ History] Diazepam [Valium] 10 mg PO TID 09/06/18 [History] Morphine Sulfate [Morphine Sulfate ER] 30 mg PO TID 09/06/18 [History] oxyCODONE HCL 30 mg PO Q6H PRN 09/06/18 [History] Vancomycin Oral Solution 250 mg PO Q6HR #10 day 09/09/18 [Rx] Follow up Appointment(s)/Referral(s): Nonstaff,Physician [Primary Care Provider] - 1-2 days Activity/Diet/Wound Care/Special Instructions: Patient has medications in pharmacy.
--- NOTE | 2018-09-09 14:09 | PN ---
PROGRESS NOTE DATE OF SERVICE: 09/09/2018. REASON FOR CONSULTATION: C difficile colitis. INTERVAL HISTORY: The patient currently denies having any fever or any chills. She is feeling better. Breathing comfortably. Her diarrhea frequency decreased only once a day. Still have loose stools though but no abdominal pain. No nausea. No vomiting. Keeping everything down. No chest pain or shortness of breath or cough. No urinary symptoms. EXAMINATION: Blood pressure is 124/79 with a pulse of 80, temperature 98.1. She is 97% on room air. General description is a middle-aged female lying in bed in no distress. Respiratory system: Unlabored breathing. Clear to auscultation anteriorly. Heart S1, S2. Regular rate and rhythm. Abdomen soft. No tenderness. Extremities: No edema of the feet. LABS: Hemoglobin 11.1, white count 6.7, BUN of 12, creatinine 0.57. Urine has been negative. DIAGNOSTIC IMPRESSION AND PLAN: Patient with acute C difficile colitis seemed to have shown clinical improvement. The patient at this time on oral vancomycin 250 q.6h. Continue for a total of 10 days with close outpatient followup. Continue supportive care. MMODL / IJN: [id number] /
[2018-09-09 16:01] VITALS: BP 117/69; PULSE 83; TEMP 97.7
== END 2018-09-09 16:40 | disposition home or self-care (01) | DRG 372 ==
LOC: EC 05:20 → 3NMEDONC 10:32 → 4MS4W 13:23 → 3NMEDONC 15:08 → 4SSUR 19:33
PROVIDERS: ADMIT Hospitalist; ATTEND Hospitalist
DX: A04.72 Enterocolitis due to Clostridium difficile, not specified as recurrent (principal); E87.1 Hypo-osmolality and hyponatremia; E83.51 Hypocalcemia; E89.0 Postprocedural hypothyroidism; M54.2 Cervicalgia; M54.9 Dorsalgia, unspecified; F41.9 Anxiety disorder, unspecified; M19.90 Unspecified osteoarthritis, unspecified site; G89.4 Chronic pain syndrome; Z87.891 Personal history of nicotine dependence; Z79.890 Hormone replacement therapy; Z79.891 Long term (current) use of opiate analgesic; Z79.899 Other long term (current) drug therapy; Z87.42 Personal history of other diseases of the female genital tract; Z85.850 Personal history of malignant neoplasm of thyroid; Z98.891 History of uterine scar from previous surgery; Z88.1 Allergy status to other antibiotic agents; Z91.041 Radiographic dye allergy status
CPT/HCPCS: 36415; 71046; 74176; 80048; 80053; 81001; 81003; 82150; 83690; 84439; 84443; 84481; 85025; 87040; 87086; 87324; 87502; 96361; 96374; 96375; 99285